=== PATIENT | female | born 1945 | race Hispanic/Latino ===

== ENCOUNTER → 2020-04-30 | Emergency (ER) | payer MEDICARE ==
[~2020-04-30] VITALS: Ht 160 cm; Wt 79.4 kg
[~2020-04-30] MED LIST: DEXTROSE 50% SYRINGE 50 ML IV STA
[2020-04-30 14:48] LABS: BASOPHILS # (AUTO) 0.1 (0.0-0.1); EOSINOPHILS # (AUTO) 0.2 (0.0-0.4); EOSINOPHILS % 1.8 % (0.0-6.0); HEMATOCRIT 35.3 % (34.2-44.1); HEMOGLOBIN 11.2 g/dL (12.0-16.0); LYMPHOCYTES # (AUTO) 2.4 (1.0-3.2); MEAN CORPUSCULAR HEMOGLOBIN 28.5 pg (28-32); MEAN CORPUSCULAR HGB CONC 31.7 g/dL (31-35); MEAN CORPUSCULAR VOLUME 89.8 fL (81-99); MONOCYTES # (AUTO) 0.7 (0.2-0.8); MONOCYTES % 7.8 % (4.4-11.3); NEUTROPHILS # (AUTO) 6.1 (2.1-6.9); NEUTROPHILS % 64.1 % (38.7-80.0); PLATELET COUNT 420 x10e3/uL (140-360); RED BLOOD COUNT 3.93 x10e6/uL (3.6-5.1); RED CELL DISTRIBUTION WIDTH 12.9 % (11.7-14.4)
[2020-04-30 15:01] LABS: ALANINE AMINOTRANSFERASE 15 IU/L (0-55); ALBUMIN 4.2 g/dL (3.5-5.0); ALBUMIN/GLOBULIN RATIO 0.9 (0.8-2.0); ALKALINE PHOSPHATASE 67 IU/L (40-150); ANION GAP 19.4 mmol/L (8-16); BLOOD UREA NITROGEN 23 mg/dL (7-26); BUN/CREATININE RATIO 26 (6-25); CARBON DIOXIDE 24 mmol/L (22-29); CHLORIDE 100 mmol/L (98-107); CREATININE, SERUM 0.89 mg/dL (0.57-1.11); EST GLOMERULAR FILTRATION RATE > 60 ML/MIN (60-); GLUCOSE 71 mg/dL (74-118); POTASSIUM 4.4 mmol/L (3.5-5.1); SODIUM 139 mmol/L (136-145)
[2020-04-30 15:08] LABS: CREATINE KINASE MB 0.8 ng/mL (0-5.0)
== END | disposition home or self-care (01) ==
LOC: ER 14:15
DX: K80.80 Other cholelithiasis without obstruction (principal); R10.11 Right upper quadrant pain; E11.649 Type 2 diabetes mellitus with hypoglycemia without coma; R94.31 Abnormal electrocardiogram [ECG] [EKG]; I10 Essential (primary) hypertension; E78.5 Hyperlipidemia, unspecified; K21.9 Gastro-esophageal reflux disease without esophagitis
CPT/HCPCS: 36415; 76705; 80053; 82550; 82553; 84484; 85025; 93005; 99284